=== PATIENT | female | born 1950 | race Caucasian/White ===

== ENCOUNTER 2023-11-18 19:01 | Emergency (ER) | payer MEDICARE, BC ==
[2023-11-18 19:29] VITALS: BP 144/89; O2SAT 98
--- NOTE | 2023-11-18 19:33 | ED Physician Documentation ---
History of Present Illness - Stated complaint Stated Complaint: BEE STING - Chief complaint Chief Complaint: General - History obtained from History obtained from: Patient - Additonal information Additional information: Patient comes to the emergency department chief complaint of bee sting to right ankle. She states happened about an hour ago and she thinks that It was a yellowjacket or hornet that stung her. She states that initially, she had some swelling that is pretty significant right around sting site and she can to feel a bit itchy in her throat and numb on one side of her tongue, and developed a cough. She denies any swelling of her face and did not notice any swelling of the tongue or throat. No hives or other rash and no itching of the skin. The patient has no history of bee sting allergy. She states that her symptoms are actually quite a bit better now. She did not take anything for the reaction at home. PD PAST MEDICAL HISTORY - Past Medical History Past Medical History: Yes Cardiovascular: Hypertension HEENT: Glaucoma - Past Surgical History Past Surgical History: No - Present Medications Home Medications: Ambulatory Orders Medication Instructions Recorded Confirmed EPINEPHrine [Epinephrine] 0.3 mg IJ ONCE PRN #1 each 11/18/23 - Allergies Allergies/Adverse Reactions: Allergies Allergy/AdvReac Type Severity Reaction Status Date / Time tetracaine Allergy Unknown Verified 11/18/23 19:25 - Social History Does the pt smoke?: No Smoking Status: Never smoker Does the pt drink ETOH?: No Does the pt have substance abuse?: No - Immunizations Immunizations are current?: Yes PD ED PE NORMAL - Vitals Vital signs reviewed: Yes - General General: Alert and oriented X 3, No acute distress, Well developed/nourished - HEENT HEENT: Atraumatic, EOMI, Moist mucous membranes, Pharynx benign, Other (No facial or oral pharyngeal edema.) - Neck Neck: Supple, no meningeal sign, No adenopathy - Cardiac Cardiac: RRR, No murmur - Respiratory Respiratory: No respiratory distress, Clear bilaterally - Abdomen Abdomen: Soft, Non tender, Non distended - Derm Derm: Normal color, Warm and dry, No rash, Other (Tiny puncture wound at the site where the patient indicates the sting occurred. There is no edema. The puncture wound itself is a slight pink color but no discoloration surrounding.) - Extremities Extremities: No deformity, No edema - Neuro Neuro: Other (Grossly intact) - Psych Psych: Normal mood, Normal affect Results - Vitals Vitals: Oxygen O2 Source Room air PD Medical Decision Making - ED course Complexity details: considered differential, d/w patient ED course: The patient was well-appearing in the emergency department and demonstrated no symptoms whatsoever of a reaction at this point. Furthermore, her physical exam findings were minimal. I have discussed with the patient that she may take Benadryl at home if she needs. I also discussed having an EpiPen on hand just in case she should be stung again. The patient agrees would like to have this, set up sent a prescription in for her. For now, I do not feel any acute treatment is warranted as the patient's symptoms have resolved on their own with no intervention. We have discussed the need to have the EpiPen on hand while she is working out in the garden, going forward. We discussed the need for return to the emergency department should she develop any swelling or impending obstruction of her throat. Departure - Departure Disposition: 01 Home, Self Care Clinical Impression: Bee sting reaction Qualifiers: Encounter type: initial encounter Injury intent: accidental or unintentional Qualified Code(s): T63.441A - Toxic effect of venom of bees, accidental (unintentional), initial encounter Condition: Stable Instructions: ED Bite Sting Insect Gen Allergic React Prescriptions: EPINEPHrine [Epinephrine] 0.3 mg IJ ONCE PRN #1 each PRN Reason: Anaphylaxis Forms: PCP List Discharge Date/Time: 11/18/23 19:36
== END 2023-11-18 19:36 | disposition home or self-care (01) ==
LOC: ED 19:01
DX: T63.441A Toxic effect of venom of bees, accidental (unintentional), initial encounter (principal)
CPT/HCPCS: 99282; 99283